=== PATIENT | male | born 1970 | race Caucasian/White ===

== ENCOUNTER 2017-02-28 15:43 | Emergency (ER) | payer OTHER ==
[~2017-02-28] VITALS: Ht 167.6 cm; Wt 95.0 kg
[2017-02-28] MEDS ORDERED: SODIUM CHLOR 0.9% 1000 ML INJ 1,000 ML IV SCH ×2 (15:50→18:09)
[2017-02-28] MEDS ORDERED: ONDANSETRON HCL 4 MG/2 ML VIAL IVP ONE (16:00)
[2017-02-28] MEDS ORDERED: MORPHINE SULFATE 4 MG/ML INJ IV PUSH ONE (16:00)
[2017-02-28 16:02] VITALS: O2SAT 95
[2017-02-28 16:04] VITALS: BP 127/89; PULSE 92; RESP 23; TEMP 98.3; O2SAT 96
--- NOTE | 2017-02-28 16:20 | RADRPT ---
EXAM DATE/TIME: 02/28/2017 15:49 [place] COMPARISON: No previous studies available for comparison. INDICATIONS : Left side pain. MEDICAL HISTORY : None. SURGICAL HISTORY : None. ENCOUNTER: Initial ACUITY: 1 day PAIN SCORE: 4/10 LOCATION: Left chest FINDINGS: Portable AP view of the chest demonstrates a normal-sized cardiac silhouette. No effusion, consolidat ion, or pneumothorax is visualized. The bones and soft tissues demonstrate no acute abnormality. CONCLUSION: No acute cardiopulmonary abnormality is identified. Dominic Stinson MD on February 28, 2017 at 16:16 Board Certified Radiologist. This report was verified electronically.
--- NOTE | 2017-02-28 17:10 | PD ---
HPI Chief Complaint: Abdominal Pain Time Seen by Provider: 17:04 Travel History International Travel<30 days: No Contact w/Intl Traveler<30days: No Traveled to known affect area: No History of Present Illness HPI 47-year-old male that presents to the ED for evaluation of possible heat stroke. Patient was brought here by ambulance. Patient has been working outside all day. He has been hot and humid outside about 90. Patient states that he was able to hydrate himself but 2 hours before ambulance showed up he was really tiring sister having cramps that cause him to fall. Per patient he did not actually fall but his friends were able to stop them and put him on the ground. Ever since he has been having bad cramps on his body. Patient states that the pains are more on the abdomen but also on the chest and legs. He states that he's had something like this before about a year ago and he was given a medication to make it better. He denies any head injury. No medical history. No surgeries. No bowel movement or urinary symptoms. No blurry vision or double vision. He does appear to be dehydrated on exam. Patient is Slovak-speaking only and he was offered hematologist but he declined secondary to able to understand my Slovak. [facility] Past Medical History Medical History: Denies Significant Hx Diminished Hearing: No Influenza Vaccination: No Past Surgical History Surgical History: No Previous Surgery Social History Alcohol Use: No Tobacco Use: No Substance Use: No Allergies-Medications (Allergen,Severity, Reaction): Coded Allergies: No Known Allergies (Unverified , 02/28/17) Reported Meds & Prescriptions Reported Meds & Active Scripts Active No Active Prescriptions or Reported Medications Review of Systems Except as stated in HPI: all other systems reviewed are Neg Physical Exam Narrative GENERAL: SKIN: Warm and dry. HEAD: Atraumatic. Normocephalic. EYES: Pupils equal and round. No scleral icterus. No injection or drainage. ENT: No nasal bleeding or discharge. Mucous membranes pink and moist. Tongue is midline. No uvula deviation. NECK: Trachea midline. No JVD. CARDIOVASCULAR: Regular rate and rhythm. No murmurs, S3, S4. RESPIRATORY: No accessory muscle use. Clear to auscultation. Breath sounds equal bilaterally. GASTROINTESTINAL: Abdomen soft, non-tender, nondistended. Hepatic and splenic margins not palpable. MUSCULOSKELETAL: Extremities without clubbing, cyanosis, or edema. No obvious deformities. Full range of motion of the upper and lower extremities bilaterally. 2+ pulses bilaterally. NEUROLOGICAL: Awake and alert. No obvious cranial nerve deficits. Motor grossly within normal limits. Five out of 5 muscle strength in the arms and legs. Normal speech. PSYCHIATRIC: Appropriate mood and affect; insight and judgment normal. Data Data Last Documented VS Vital Signs Date Time Temp Pulse Resp B/P Pulse Ox O2 Delivery O2 Flow Rate FiO2 02/28/17 16:04 98.3 92 23 127/89 96 Room Air Orders Electrocardiogram (02/28/17 15:50) Complete Blood Count With Diff (02/28/17 15:50) Comprehensive Metabolic Panel (02/28/17 15:50) Ckmb (Isoenzyme) Profile (02/28/17 15:50) Troponin I (02/28/17 15:50) Lipase (02/28/17 15:50) Thyroid Stimulating Hormone (02/28/17 15:50) Chest, Single Ap (02/28/17 15:50) Iv Access Insert/Monitor (02/28/17 15:50) Ecg Monitoring (02/28/17 15:50) Oximetry (02/28/17 15:50) Morphine Inj (Morphine Inj) (02/28/17 16:00) Ondansetron Inj (Zofran Inj) (02/28/17 16:00) Sodium Chlor 0.9% 1000 Ml Inj (Ns 1000 M (02/28/17 15:50) CKMB (02/28/17 16:20) CKMB% (02/28/17 16:20) Sodium Chlor 0.9% 1000 Ml Inj (Ns 1000 M (02/28/17 18:09) Basic Metabolic Panel (Bmp) (02/28/17 18:21) Labs Laboratory Tests Test 02/28/17 02/28/17 16:20 19:02 White Blood Count 7.7 TH/MM3 Red Blood Count 4.64 MIL/MM3 Hemoglobin 15.1 GM/DL Hematocrit 43.9 % Mean Corpuscular Volume 94.6 FL Mean Corpuscular Hemoglobin 32.5 PG Mean Corpuscular Hemoglobin 34.3 % Concent Red Cell Distribution Width 13.6 % Platelet Count 256 TH/MM3 Mean Platelet Volume 8.5 FL Neutrophils (%) (Auto) 72.5 % Lymphocytes (%) (Auto) 18.5 % Monocytes (%) (Auto) 6.5 % Eosinophils (%) (Auto) 1.9 % Basophils (%) (Auto) 0.6 % Neutrophils # (Auto) 5.6 TH/MM3 Lymphocytes # (Auto) 1.4 TH/MM3 Monocytes # (Auto) 0.5 TH/MM3 Eosinophils # (Auto) 0.1 TH/MM3 Basophils # (Auto) 0.0 TH/MM3 CBC Comment DIFF FINAL Differential Comment Sodium Level 136 MEQ/L 135 MEQ/L Potassium Level 3.9 MEQ/L 4.1 MEQ/L Chloride Level 100 MEQ/L 103 MEQ/L Carbon Dioxide Level 20.8 MEQ/L 22.4 MEQ/L Anion Gap 15 MEQ/L 10 MEQ/L Blood Urea Nitrogen 26 MG/DL 24 MG/DL Creatinine 2.12 MG/DL 1.36 MG/DL Estimat Glomerular Filtration 34 ML/MIN 57 ML/MIN Rate Random Glucose 118 MG/DL 100 MG/DL Calcium Level 9.1 MG/DL 8.0 MG/DL Total Bilirubin 0.6 MG/DL Aspartate Amino Transf 39 U/L (AST/SGOT) Alanine Aminotransferase 52 U/L (ALT/SGPT) Alkaline Phosphatase 70 U/L Total Creatine Kinase 222 U/L Creatine Kinase MB 1.9 NG/ML Troponin I LESS THAN 0.02 NG/ML Total Protein 8.7 GM/DL Albumin 4.1 GM/DL Lipase 127 U/L Thyroid Stimulating Hormone 2.990 uIU/ML 3rd Gen [facility] Medical Decision Making Medical Screen Exam Complete: Yes Emergency Medical Condition: Yes Medical Record Reviewed: Yes Interpretation(s) CBC & BMP Diagram 02/28/17 16:20 LFTs within normal limits. Troponin and CK-MB negative. CK negative as well. Last Impressions Chest X-Ray 02/28/17 1550 Signed Impressions: Service Date/Time: Tuesday, February 28, 2017 15:49 - CONCLUSION: No acute cardiopulmonary abnormality is identified. Dominic Stinson MD Differential Diagnosis Rhabdomyolysis versus heat stroke versus dehydration versus kidney failure versus muscle strain versus muscle spasm Narrative Course 47-year-old male that presents to the ED for evaluation of possible heat stroke. Patient was properly examined and was found to have signs and symptoms which appear to be consistent with muscle cramps likely secondary to dehydration and possible rhabdomyolysis from being in the heat. Labs and imaging were ordered. Patient was given IV fluids here. Morphine as well. Labs and imaging showed no sign of acute disease other than what appears to be acute kidney injury. Likely from the hydration and from the heat exhaustion. Case was discussed in my attending Dr. Marie who was made aware of findings. He recommends finishing and third bolus of fluid as well as recheck of the creatinine. If this is better patient can go home. This was discussed with the patient in length who is in agreement with this plan. BMP was ordered as well as 3rd liter. Patient finished her later and BMP came back with improvement of creatinine and BUN. Patient was reassured. This time I recommend one day off of work tomorrow. He was instructed that he needs to drink lots and lots of water for the next couple days to improve his kidneys and to rest. Avoid NSAIDs. Take Tylenol for pain if needed. See ED worsening symptoms. Diagnosis Primary Impression: Heat cramps Qualified Code: T67.2XXA - Heat cramps, initial encounter Additional Impression: Dehydration Patient Instructions: General Instructions Additional Instructions: Shawna Tylenol para el dolor si necesitas. No tomes ibuprofeno hasta que te mejores 100%. Shawna get agua y gatorade hoy y manana. Al igual cuando estas en el trabajo para prevenir lo que te paso hoy. Med/Other Pt SpecificInfo: No Change to Meds Scripts No Active Prescriptions or Reported Meds Disposition: 01 DISCHARGE HOME Condition: Stable Ish Cramen Feb 28, 2017 17:10
[2017-02-28 17:23] LABS: AUTOMATED NEUTROPHIL # 5.6 TH/MM3 (1.8-7.7); BASOPHIL % 0.6 % (0.0-2.0); EOSINOPHIL # 0.1 TH/MM3 (0-0.4); EOSINOPHIL % 1.9 % (0.0-4.0); HEMATOCRIT 43.9 % (39.0-51.0); HEMO FLAGS DIFF FINAL; LYMPH % 18.5 % (9.0-44.0); LYMPHOCYTE # 1.4 TH/MM3 (1.0-4.8); MEAN CELL VOLUME 94.6 FL (80.0-100.0); MEAN CORPUSCULAR HEMOGLOBIN 32.5 PG (27.0-34.0); MEAN CORPUSCULAR HGB CONC 34.3 % (32.0-36.0); MONO % 6.5 % (0.0-8.0); NEUT % 72.5 % (16.0-70.0); PLATELET COUNT 256 TH/MM3 (150-450); RED BLOOD COUNT 4.64 MIL/MM3 (4.50-5.90); RED CELL DISTRIBUTION WIDTH 13.6 % (11.6-17.2); WHITE BLOOD COUNT 7.7 TH/MM3 (4.0-11.0)
[2017-02-28 18:05] LABS: ALKALINE PHOSPHATASE 70 U/L (45-117); ALT (GPT) 52 U/L (12-78); ANION GAP 15 MEQ/L (5-15); AST (GOT) 39 U/L (15-37); BICARBONATE 20.8 MEQ/L (21.0-32.0); BLOOD UREA NITROGEN 26 MG/DL (7-18); CHLORIDE 100 MEQ/L (98-107); CREATINE KINASE 222 U/L (39-308); GLOMERULAR FILTRATION RATE 34 ML/MIN (>89); SODIUM (NA) 136 MEQ/L (136-145); TOTAL BILIRUBIN ADULT 0.6 MG/DL (0.2-1.0)
[2017-02-28 18:06] LABS: POTASSIUM 3.9 MEQ/L (3.5-5.1)
[2017-02-28 18:19] LABS: CKMB 1.9 NG/ML (0.5-3.6)
[2017-02-28 19:39] LABS: BICARBONATE 22.4 MEQ/L (21.0-32.0); POTASSIUM 4.1 MEQ/L (3.5-5.1)
--- NOTE | 2017-03-01 10:43 | EKG ---
Date Performed: 02/28/2017 Time Performed: 16:12:09 PTAGE: 47 years EKG: Sinus rhythm POSSIBLE INFERIOR MYOCARDIAL INFARCTION ABNORMAL ECG NO PREVIOUS TRACING DOCTOR: Amaury Teixeira Interpretating Date/Time 03/01/2017 10:41:48
== END 2017-02-28 20:26 | disposition home or self-care (01) ==
LOC: NEPC 15:43
DX: T67.2XXA Heat cramp, initial encounter (principal); E86.0 Dehydration; N17.9 Acute kidney failure, unspecified; R94.31 Abnormal electrocardiogram [ECG] [EKG]; R07.9 Chest pain, unspecified
CPT/HCPCS: 71010; 80053; 82550; 82552; 83690; 84443; 84484; 85025; 93005; 96361; 96374; 96375; 99285; J2270; J2405; J7030; 80048

== ENCOUNTER 2017-03-29 17:25 | Inpatient (IN) | payer OTHER ==
[~2017-03-29] VITALS: Ht 170.2 cm; Wt 99.2 kg
[2017-03-29 17:35] VITALS: BP 110/76; PULSE 117; RESP 16; TEMP 98.6; O2SAT 96
[2017-03-29 17:36] VITALS: BP 110/76; PULSE 117; RESP 18; TEMP 98.6; O2SAT 96
--- NOTE | 2017-03-29 18:28 | PD ---
HPI Chief Complaint: Musculoskeletal Complaint Time Seen by Provider: 18:24 Travel History International Travel<30 days: No Contact w/Intl Traveler<30days: No Traveled to known affect area: No History of Present Illness HPI This 47-year-old male is complaining of cramping in his arms and legs. He was working out in the heat today. He is on no medications. He started cramping and it has gotten worse. There is been no vomiting or diarrhea. He has not had any alcohol PFSH Past Medical History Medical History: Denies Significant Hx Influenza Vaccination: No Past Surgical History Surgical History: No Previous Surgery Social History Alcohol Use: No Tobacco Use: No Substance Use: No Allergies-Medications (Allergen,Severity, Reaction): Coded Allergies: No Known Allergies (Unverified , 03/29/17) Reported Meds & Prescriptions Reported Meds & Active Scripts Active No Active Prescriptions or Reported Medications Review of Systems General / Constitutional: No: Fever, Chills Eyes: No: Diploplia, Blurred Vision HENT: No: Headaches, Vertigo Cardiovascular: No: Chest Pain or Discomfort, Palpitations Respiratory: No: Cough, Shortness of Breath Gastrointestinal: No: Nausea, Vomiting Genitourinary: No: Urgency, Frequency Musculoskeletal: Positive: Myalgias, Arthralgias, Weakness, Pain Skin: No Rash, No Itching Neurologic: Positive: Weakness Psychiatric: No: Anxiety Endocrine: No: Heat Intolerance, Cold Intolerance Hematologic/Lymphatic: No: Easy Bruising Physical Exam Narrative GENERAL: Well-developed male SKIN: Focused skin assessment warm/dry. HEAD: Atraumatic. Normocephalic. EYES: Pupils equal and round. No scleral icterus. No injection or drainage. ENT: No nasal bleeding or discharge. Mucous membranes dry. NECK: Trachea midline. No JVD. CARDIOVASCULAR: Regular rate and rhythm. No murmur appreciated. RESPIRATORY: No accessory muscle use. Clear to auscultation. Breath sounds equal bilaterally. GASTROINTESTINAL: Abdomen soft, non-tender, nondistended. Hepatic and splenic margins not palpable. MUSCULOSKELETAL: No obvious deformities. No clubbing. No cyanosis. No edema. He is having cramping of the muscles of the arms and legs NEUROLOGICAL: Awake and alert. No obvious cranial nerve deficits. Motor grossly within normal limits. Normal speech. PSYCHIATRIC: Appropriate mood and affect; insight and judgment normal. Data Data Last Documented VS Vital Signs Date Time Temp Pulse Resp B/P (MAP) Pulse Ox O2 Delivery O2 Flow Rate FiO2 03/29/17 17:36 98.6 117 18 110/76 (87) 96 Room Air Orders Orders Sodium Chlor 0.9% 1000 Ml Inj (Ns 1000 M (03/29/17 18:30) Sodium Chlor 0.9% 1000 Ml Inj (Ns 1000 M (03/29/17 18:30) Complete Blood Count With Diff (03/29/17 18:26) Basic Metabolic Panel (Bmp) (03/29/17 18:26) Creatine Kinase (Cpk) (03/29/17 18:26) Magnesium (Mg) (03/29/17 18:26) Potassium Chloride (Kcl) (03/29/17 19:00) Sodium Chlor 0.9% 1000 Ml Inj (Ns 1000 M (03/29/17 19:00) Labs Laboratory Tests Test 03/29/17 18:00 White Blood Count 11.6 TH/MM3 Red Blood Count 5.45 MIL/MM3 Hemoglobin 17.0 GM/DL Hematocrit 51.3 % Mean Corpuscular Volume 94.1 FL Mean Corpuscular Hemoglobin 31.2 PG Mean Corpuscular Hemoglobin Concent 33.2 % Red Cell Distribution Width 13.1 % Platelet Count 318 TH/MM3 Mean Platelet Volume 8.7 FL CBC Comment AUTO DIFF Blood Urea Nitrogen 22 MG/DL Creatinine 3.40 MG/DL Random Glucose 138 MG/DL Calcium Level 11.1 MG/DL Magnesium Level 3.2 MG/DL Sodium Level 137 MEQ/L Potassium Level 3.9 MEQ/L Chloride Level 95 MEQ/L Carbon Dioxide Level 24.7 MEQ/L Anion Gap 17 MEQ/L Estimat Glomerular Filtration Rate 20 ML/MIN Total Creatine Kinase 265 U/L [facility] Medical Decision Making Medical Screen Exam Complete: Yes Emergency Medical Condition: Yes Medical Record Reviewed: Yes Differential Diagnosis Differential includes heat cramps, dehydration, rhabdomyolysis Narrative Course Patient has been given IV fluids. Lab work is remarkable for sodium 137, potassium 3.9. His urine is 22 with creatinine of 3.4. Calcium is 11 with magnesium of 3.2. His CPK is 265. We do not have any previous values on this Diagnosis Primary Impression: Dehydration Additional Impression: Acute kidney injury Admitting Information Admitting Physician Requests: Admit Scripts No Active Prescriptions or Reported Meds Pawan Glaser MD Mar 29, 2017 18:28
[2017-03-29] MEDS ORDERED: SODIUM CHLOR 0.9% 1000 ML INJ 1,000 ML IV ONE ×3 (18:30→19:00)
[2017-03-29 18:48] LABS: HEMATOCRIT 51.3 % (39.0-51.0); MEAN CELL VOLUME 94.1 FL (80.0-100.0); MEAN CORPUSCULAR HEMOGLOBIN 31.2 PG (27.0-34.0); MEAN CORPUSCULAR HGB CONC 33.2 % (32.0-36.0); PLATELET COUNT 318 TH/MM3 (150-450); RED BLOOD COUNT 5.45 MIL/MM3 (4.50-5.90); RED CELL DISTRIBUTION WIDTH 13.1 % (11.6-17.2); WHITE BLOOD COUNT 11.6 TH/MM3 (4.0-11.0)
[2017-03-29 18:51] LABS: HEMO FLAGS AUTO DIFF
[2017-03-29 18:52] LABS: POTASSIUM 3.9 MEQ/L (3.5-5.1)
[2017-03-29 18:56] LABS: BICARBONATE 24.7 MEQ/L (21.0-32.0); MAGNESIUM 3.2 MG/DL (1.5-2.5)
[2017-03-29] MEDS ORDERED: POTASSIUM CHLORIDE 20 MEQ CONTROLLED RELEASE TAB PO ONE (19:00)
[2017-03-29 19:11] VITALS: BP 118/80; PULSE 89; RESP 18; TEMP 98.3
[2017-03-29] MEDS ORDERED: NALOXONE HCL 0.4 MG/ML AMP IV PRN (19:45)
[2017-03-29] MEDS ORDERED: SODIUM CHLORIDE 0.9% FLUSH 10 ML FLUSH IV FLUSH PRN (19:45)
[2017-03-29 20:03] LABS: BANDS 4 % (0-6); BASOPHILS 1 % (0-2); CORRECTED NUCLEATED RBC 1 /100 WBC (0-0); EOSINOPHILS 4 % (0-4); METAMYELOCYTES 1 % (0-1); NEUTROPHIL # MANUAL DIFF 7.3 TH/MM3 (1.8-7.7); PLATELET ESTIMATE SMEAR NORMAL (NORMAL); PLATELET MORPHOLOGY NORMAL (NORMAL); POLYS (SEG NEUTROPHILS) 58 % (16-70); SCAN/DIFF FINAL DIFF MANUAL; WBC DIFF SAMPLE 100
[2017-03-29 20:59] VITALS: BP 120/68; PULSE 80; RESP 18; O2SAT 97
[2017-03-29 23:10] VITALS: BP 113/72; PULSE 80; RESP 16; O2SAT 97
[2017-03-30 00:21] VITALS: BP 114/71; PULSE 82; RESP 18; TEMP 98.3; O2SAT 97
[2017-03-30 04:00] VITALS: BP 116/59; PULSE 78; RESP 18; TEMP 98.3; O2SAT 97
[2017-03-30] MEDS: SODIUM CHLORIDE 0.9% FLUSH 10 ML FLUSH IV FLUSH SCH ×2 (04:38→09:00)
[2017-03-30 05:09] LABS: AUTOMATED NEUTROPHIL # 5.4 TH/MM3 (1.8-7.7); BASOPHIL % 0.5 % (0.0-2.0); EOSINOPHIL # 0.1 TH/MM3 (0-0.4); EOSINOPHIL % 1.7 % (0.0-4.0); HEMATOCRIT 36.1 % (39.0-51.0); HEMO FLAGS DIFF FINAL; LYMPH % 20.1 % (9.0-44.0); LYMPHOCYTE # 1.5 TH/MM3 (1.0-4.8); MEAN CELL VOLUME 92.1 FL (80.0-100.0); MEAN CORPUSCULAR HEMOGLOBIN 31.9 PG (27.0-34.0); MEAN CORPUSCULAR HGB CONC 34.7 % (32.0-36.0); MONO % 5.9 % (0.0-8.0); NEUT % 71.8 % (16.0-70.0); PLATELET COUNT 202 TH/MM3 (150-450); RED BLOOD COUNT 3.92 MIL/MM3 (4.50-5.90); WHITE BLOOD COUNT 7.4 TH/MM3 (4.0-11.0)
[2017-03-30 05:38] LABS: BICARBONATE 22.1 MEQ/L (21.0-32.0); POTASSIUM 3.9 MEQ/L (3.5-5.1)
[2017-03-30 07:22] VITALS: BP 109/55; PULSE 76; RESP 16; O2SAT 97
[2017-03-30 08:00] VITALS: BP 136/66; PULSE 72; RESP 18; TEMP 98.1; O2SAT 97
[2017-03-30 12:00] VITALS: BP 115/67; PULSE 72; RESP 18; TEMP 98.5; O2SAT 95
--- NOTE | 2017-03-30 12:03 | HHI.DCPOC ---
Discharge Care Plan Diagnosis: (1) Dehydration (2) Acute kidney injury Goals to Promote Your Health * To prevent worsening of your condition and complications * To maintain your health at the optimal level Directions to Meet Your Goals Take your medications as prescribed Follow your dietary instruction Follow activity as directed Keep your appointments as scheduled Take your immunizations and boosters as scheduled If your symptoms worsen call your PCP, if no PCP go to Urgent Care Center or Emergency Room Smoking is Dangerous to Your Health. Avoid second hand smoke Call the 24-hour hour crisis hotline for domestic abuse at Sheba Kurtz MD Mar 30, 2017 12:03
[2017-03-30 12:04] VITALS: PULSE 73
--- NOTE | 2017-03-30 12:08 | HHI.HP ---
[facility] Service [facility] Primary Care Physician No Primary Care Physician Admission Diagnosis ACUTE KIDNEY INJURY, DEHYDRATION Diagnoses: Chief Complaint: Muscle aches Travel History International Travel<30 Days: No Contact w/Intl Traveler <30 Da: No Traveled to Known Affected Are: No History of Present Illness Patient is a pleasant 47-year-old gentleman who is otherwise healthy. He was working in the sun all day and felt dehydrated dizzy and had some muscle aches. He came to the emergency room. He was in acute renal failure. His issues have resolved overnight with aggressive hydration. Patient's pain is resolved and the patient's renal function is back to baseline. Review of Systems Constitutional: DENIES: Diaphoretic episodes, Fatigue, Fever, Weight gain, Weight loss, Chills, Dizziness, Change in appetite, Night Sweats Endocrine: DENIES: Heat/cold intolerance, Polydipsia, Polyuria, Polyphagia Eyes: DENIES: Blurred vision, Diplopia, Eye inflammation, Eye pain, Vision loss , Photosensitivity, Double Vision Ears, nose, mouth, throat: DENIES: Tinnitus, Hearing loss, Vertigo, Nasal discharge, Oral lesions, Throat pain, Hoarseness, Ear Pain, Running Nose, Epistaxis, Sinus Pain, Toothache, Odynophagia Respiratory: DENIES: Apneas, Cough, Snoring, Wheezing, Hemoptysis, Sputum production, Shortness of breath Cardiovascular: DENIES: Chest pain, Palpitations, Syncope, Dyspnea on Exertion , PND, Lower Extremity Edema, Orthopnea, Claudication Gastrointestinal: DENIES: Abdominal pain, Black stools, Bloody stools, Constipation, Diarrhea, Nausea, Vomiting, Difficulty Swallowing, Anorexia Genitourinary: DENIES: Sexual dysfunction, Urinary frequency, Urinary incontinence, Urgency, Hematuria, Dysuria, Nocturia, Penile Discharge, Testicular Pain, Testicular Swelling Musculoskeletal: COMPLAINS OF: Muscle aches Integumentary: DENIES: Abnormal pigmentation, Nail changes, Pruritus, Rash Hematologic/lymphatic: DENIES: Bruising, Lymphadenopathy Immunologic/allergic: DENIES: Eczema, Urticaria Neurologic: DENIES: Abnormal gait, Headache, Localized weakness, Paresthesias, Seizures, Speech Problems, Tremor, Poor Balance Psychiatric: DENIES: Anxiety, Confusion, Mood changes, Depression, Hallucinations, Agitation, Suicidal Ideation, Homicidal Ideation, Delusions Except as stated in HPI: all other systems reviewed are Neg Past Family Social History Past Medical History Denies Past Surgical History Denies Reported Medications Denies Allergies: Coded Allergies: No Known Allergies (Unverified , 03/29/17) Active Ordered Medications Reviewed in the EMR Family History Everyone is healthy Social History No tobacco or alcohol dependency Physical Exam Vital Signs Vital Signs Date Time Temp Pulse Resp B/P (MAP) Pulse Ox O2 Delivery O2 Flow Rate FiO2 03/30/17 08:00 98.1 72 18 136/66 (89) 97 03/30/17 07:58 03/30/17 07:22 76 16 109/55 (73) 97 Room Air 03/30/17 04:00 98.3 78 18 116/59 (78) 97 Room Air 03/30/17 00:21 98.3 82 18 114/71 (85) 97 03/29/17 23:10 80 16 113/72 (86) 97 Room Air 03/29/17 20:59 80 18 120/68 (85) 97 Room Air 03/29/17 19:11 98.3 89 18 118/80 (93) Room Air 03/29/17 17:36 98.6 117 18 110/76 (87) 96 Room Air 03/29/17 17:35 98.6 117 16 110/76 (87) 96 Physical Exam GENERAL: This is a well-nourished, well-developed patient, in no apparent distress. SKIN: No rashes, ecchymoses or lesions. Cool and dry. HEAD: Atraumatic. Normocephalic. No temporal or scalp tenderness. EYES: Pupils equal round and reactive. Extraocular motions intact. No scleral icterus. No injection or drainage. ENT: Nose without bleeding, purulent drainage or septal hematoma. Throat without erythema, tonsillar hypertrophy or exudate. Uvula midline. Airway patent. NECK: Trachea midline. No JVD or lymphadenopathy. Supple, nontender, no meningeal signs. CARDIOVASCULAR: Regular rate and rhythm without murmurs, gallops, or rubs. RESPIRATORY: Clear to auscultation. Breath sounds equal bilaterally. No wheezes , rales, or rhonchi. GASTROINTESTINAL: Abdomen soft, non-tender, nondistended. No hepato-splenomegaly , or palpable masses. No guarding. MUSCULOSKELETAL: Extremities without clubbing, cyanosis, or edema. No joint tenderness, effusion, or edema noted. No calf tenderness. Negative Homans sign bilaterally. NEUROLOGICAL: Awake and alert. Cranial nerves II through XII intact. Motor and sensory grossly within normal limits. Five out of 5 muscle strength in all muscle groups. Normal speech. Laboratory Laboratory Tests Test 03/29/17 18:00 03/30/17 04:40 White Blood Count 11.6 7.4 Red Blood Count 5.45 3.92 Hemoglobin 17.0 12.5 Hematocrit 51.3 36.1 Mean Corpuscular Volume 94.1 92.1 Mean Corpuscular Hemoglobin 31.2 31.9 Mean Corpuscular Hemoglobin Concent 33.2 34.7 Red Cell Distribution Width 13.1 13.0 Platelet Count 318 202 Mean Platelet Volume 8.7 8.2 CBC Comment AUTO DIFF DIFF FINAL Differential Total Cells Counted 100 Neutrophils % (Manual) 58 Band Neutrophils % 4 Lymphocytes % 30 Monocytes % 2 Eosinophils % 4 Basophils % 1 Neutrophils # (Manual) 7.3 Metamyelocytes 1 Nucleated Red Blood Cells 1 Differential Comment FINAL DIFF MANUAL Atypical Lymphocytes Platelet Estimate NORMAL Platelet Morphology Comment NORMAL Red Cell Morphology Comment NORMAL Blood Urea Nitrogen 22 20 Creatinine 3.40 1.10 Random Glucose 138 106 Calcium Level 11.1 7.5 Magnesium Level 3.2 Sodium Level 137 137 Potassium Level 3.9 3.9 Chloride Level 95 107 Carbon Dioxide Level 24.7 22.1 Anion Gap 17 8 Estimat Glomerular Filtration Rate 20 72 Total Creatine Kinase 265 Neutrophils (%) (Auto) 71.8 Lymphocytes (%) (Auto) 20.1 Monocytes (%) (Auto) 5.9 Eosinophils (%) (Auto) 1.7 Basophils (%) (Auto) 0.5 Neutrophils # (Auto) 5.4 Lymphocytes # (Auto) 1.5 Monocytes # (Auto) 0.4 Eosinophils # (Auto) 0.1 Basophils # (Auto) 0.0 Result Diagram: 03/30/1743903/30/17439 Assessment and Plan Problem List: (1) Acute kidney injury ICD Code: N17.9 - Acute kidney failure, unspecified Status: Acute Plan: Resolved after IV hydration (2) Dehydration ICD Code: E86.0 - Dehydration Status: Acute Plan: Secondary to heat exposure, resolved Assessment and Plan Patient issues have resolved after overnight hydration Discharge home Activity unrestricted Code Status Full code Discussed Condition With Patient Shbea Kurtz MD Mar 30, 2017 12:08
== END 2017-03-30 15:08 | disposition home or self-care (01) | DRG 684 ==
LOC: PHED 17:25 → PHEDA 19:38 → MERGE 19:38 → PHEDH 23:38 → PH3A 03-30 07:51
PROVIDERS: ADMIT Hospitalist; ATTEND Hospitalist
DX: N17.9 Acute kidney failure, unspecified (principal); E86.0 Dehydration
CPT/HCPCS: 80048; 82550; 83735; 85007; 85025; 85027; 96360; J7030